=== PATIENT | male | born 1980 | race Caucasian/White ===

== ENCOUNTER 2022-05-29 22:38 | Observation (INO) | payer BC ==
[2022-05-29 23:20] LABS: Basophils % (A) 0 %; Eosinophils # (A) 0.3 k/uL (0-0.7); Eosinophils % (A) 4 %; HCT 46.9 % (39.0-53.0); HGB 16.2 gm/dL (13.0-17.5); Lymphocytes # (A) 2.5 k/uL (1.0-4.8); Lymphocytes % (A) 35 %; MCH 31.6 pg (25.0-35.0); MCHC 34.5 g/dL (31.0-37.0); MCV 91.6 fL (80.0-100.0); Mean Platelet Volume 8.2; Monocytes # (A) 0.5 k/uL (0-1.0); Monocytes % (A) 7 %; Neutrophils # (A) 3.8 k/uL (1.3-7.7); Neutrophils % (A) 53 %; Platelet Count 209 k/uL (150-450); RBC 5.12 m/uL (4.30-5.90); RDW 12.3 % (11.5-15.5); WBC 7.3 k/uL (3.8-10.6)
[2022-05-29 23:31] LABS: Partial Thromboplastin Time 25.7 sec (22.0-30.0); Prothrombin Time 11.3 sec (9.0-12.0)
--- NOTE | 2022-05-29 23:38 | XR ---
EXAMINATION TYPE: XR chest 2V DATE OF EXAM: 05/29/2022 COMPARISON: NONE HISTORY: Chest pain TECHNIQUE: 2 views FINDINGS: Heart and mediastinum are normal. Lungs are clear. Diaphragm is normal. Bony thorax appears normal. IMPRESSION: Normal chest.
[2022-05-29 23:49] LABS: ALT 24 U/L (4-49); AST 30 U/L (17-59); African American GFR (CKD) >90 (>60 ml/min/1.73 sqM); Albumin 5.1 g/dL (3.5-5.0); Alkaline Phosphatase 75 U/L (38-126); Anion Gap 12 mmol/L; Blood Urea Nitrogen 18 mg/dL (9-20); Calcium 9.7 mg/dL (8.4-10.2); Carbon Dioxide 25 mmol/L (22-30); Chloride 100 mmol/L (98-107); Glucose 93 mg/dL (74-99); Non-African American GFR(CKD) >90 (>60 ml/min/1.73 sqM); Potassium 4.2 mmol/L (3.5-5.1); Sodium 137 mmol/L (137-145); Total Bilirubin 0.3 mg/dL (0.2-1.3); Total Protein 7.6 g/dL (6.3-8.2)
[2022-05-30] MEDS ORDERED: NITROGLYCERIN OINT 1 INCH/GM PACKET TOPICAL STA (00:11)
[2022-05-30] MEDS ORDERED: ASPIRIN 81 MG PO STA (00:11)
--- NOTE | 2022-05-30 00:15 | ED ---
Chest Pain HPI - General Chief Complaint: Chest Pain Stated Complaint: Chest Pain Time Seen by Provider: 05/30/22 00:05 Source: patient, RN notes reviewed Mode of arrival: wheelchair Limitations: no limitations - History of Present Illness Initial Comments: This is a pleasant 41-year-old male who presents to the emergency department today complaining of 2 or 3 days of left-sided chest pressure with radiation into the left arm. Patient states this actually occurs at rest. He is denying any other specific symptomology. It is not reproducible. Patient has no history of cardiac disease. Denying any known family history. Patient is a nonsmoker. No previous cardiac testing. Patient states he did have an EKG done at his physician's office several months ago which showed an irregular heartbeat but he never followed up to get tested. No headache, no fever or chills, no changes in vision or hearing, no sore throat or difficulty with speech, no neck pain, no shortness of breath, no abdominal pain, no nausea or vomiting, no changes in urination or bowel movements, no numbness or tingling, no extremity pain, no skin rashes or lesions. Past medical, surgical, social, and family history reviewed. MD Complaint: chest pain - Related Data Allergies Allergy/AdvReac Type Severity Reaction Status Date / Time No Known Allergies Allergy Verified 05/29/22 22:43 Review of Systems ROS Statement: Those systems with pertinent positive or pertinent negative responses have been documented in the HPI. ROS Other: All systems not noted in ROS Statement are negative. EKG Findings - EKG Comments: EKG Findings:: EKG shows sinus rhythm with a rate of 64. Normal axis. No acute ST or T-wave changes. Normal intervals. No comparison study. 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 Vital signs stable, patient afebrile. Limitations: no limitations General appearance: alert, in no apparent distress Head exam: Present: atraumatic, normocephalic, normal inspection Eye exam: Present: normal appearance, PERRL, EOMI. Absent: scleral icterus, conjunctival injection, periorbital swelling ENT exam: Present: normal exam, mucous membranes moist Neck exam: Present: normal inspection, full ROM. Absent: tenderness, meningismus, lymphadenopathy Respiratory exam: Present: normal lung sounds bilaterally. Absent: respiratory distress, wheezes, rales, rhonchi, stridor Cardiovascular Exam: Present: regular rate, normal rhythm, normal heart sounds. Absent: systolic murmur, diastolic murmur, rubs, gallop, clicks GI/Abdominal exam: Present: soft, normal bowel sounds. Absent: distended, tenderness, guarding, rebound, rigid Extremities exam: Present: normal inspection, full ROM, normal capillary refill. Absent: tenderness, pedal edema, joint swelling, calf tenderness Back exam: Present: normal inspection Neurological exam: Present: alert, oriented X3, CN II-XII intact Psychiatric exam: Present: normal affect, normal mood Skin exam: Present: warm, dry, intact, normal color. Absent: rash Course Vital Signs 05/29/22 05/30/22 22:40 00:04 Temperature 98.2 F Pulse Rate 65 58 L Respiratory 20 18 Rate Blood Pressure 130/76 113/76 O2 Sat by Pulse 98 99 Oximetry - Reevaluation(s) Reevaluation #1: 05/30/22 01:02 Medical record is reviewed Symptoms are improved here in the emergency department Patient is informed of results and questions answered Patient in no distress - Consultations Consultation #1: This will be discussed with [facility]. Chest Pain MDM - Differential Diagnosis AMI, ACS - MDM Patient presents with chest pain, not reproducible. Atypical in nature given the negative troponin and EKG. She'll be admitted for observation and chest pain rule out.Patient's chest pain does not appear to be consistent with infectious etiology, pulmonary etiology, or pulmonary embolism. All findings discussed with the patient. All questions answered. Aspirin given. Nitroglycerin paste applied. Supervising physician Dr. Corrigan Disposition Clinical Impression: Atypical chest pain Disposition: ADMITTED IP TO THIS [facility] Condition: Stable Is patient prescribed a controlled substance at d/c from ED?: No Referrals: None,Stated [Primary Care Provider] - 1-2 days Time of Disposition: 00:14 Decision to Admit Reason: Admit from EC Decision Time: 00:15
[2022-05-30] MEDS ORDERED: MORPHINE SULFATE 4 MG/ML SYRINGE IV PRN (01:00)
[2022-05-30] MEDS ORDERED: NALOXONE 0.4 MG/ML 1 ML VIAL IV PRN (01:00)
[2022-05-30] MEDS ORDERED: ONDANSETRON 4 MG/2 ML VIAL IVP PRN (01:00)
[2022-05-30] MEDS ORDERED: ACETAMINOPHEN TAB 325 MG TAB PO PRN (01:00)
[2022-05-30] MEDS ORDERED: SODIUM CHLORIDE 0.9% 1,000 ML IV SCH (05:00)
--- NOTE | 2022-05-30 05:14 | P.HPIM ---
History of Present Illness H&P Date: 05/30/22 Chief Complaint: chest pain 41-year-old male with no significant past medical history Patient comes in with complaint of off and on chest pain for the past 3 days he reports left-sided chest pain that started about couple weeks ago. But has increased in frequency and severity over the past 3 days. He feels episodes of short-lived tightness of the left side of the chest 8 out of 10 in severity not associated with any dizziness lightheadedness nausea vomiting no associated diaphoresis shortness of breath syncope or near-syncope. He reports that he has moved into a new house about a month ago but denies any injuries denies any limitations to activities. Denies any cardiac workup in the past denies any history of blood clots. Denies any recent travel or hospital stay Denies tobacco smoking illicit drugs or alcohol use Open the ED showed chest x-ray with no acute pathology blood work was unremarkable vital signs stable EKG no acute ST changes He denies any cardiac history in the family Review of Systems Pertinent positives as noted in HPI. 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 History of Any Multi-Drug Resistant Organisms: None Reported Past Surgical History: No Surgical Hx Reported Past Psychological History: No Psychological Hx Reported Smoking Status: Never smoker Past Alcohol Use History: None Reported Past Drug Use History: None Reported - Past Family History family Additional Family Medical History / Comment(s): denies coronary artery disease in the family Medications and Allergies Allergies Allergy/AdvReac Type Severity Reaction Status Date / Time No Known Allergies Allergy Verified 05/29/22 22:43 Physical Exam Vitals: Vital Signs Temp Pulse Resp BP Pulse Ox 05/30/22 02:32 98.4 F 81 15 117/66 96 05/30/22 00:04 58 L 18 113/76 99 05/29/22 22:40 98.2 F 65 20 130/76 98 Intake and Output 05/29/22 05/29/22 05/30/22 14:59 22:59 06:59 Other: Weight 88.451 kg Constitutional: No acute distress, conversant, pleasant Eyes: Anicteric sclerae, moist conjunctiva, Pupils equal round reactive to light ENMT: NC/AT Oropharynx clear, no erythema, or exudates Neck: Supple, FROM, no masses, or JVD No carotid bruits No thyromegaly Lungs: Clear to auscultation Clear to percussion Normal respiratory effort, no accessory muscle use Cardiovascular: Heart regular in rate and rhythm, No murmurs, gallops, or rubs No peripheral edema Abdominal: Soft Nontender, no guarding, rebound or rigidity Abdomen moving with respiration Normoactive bowel sounds No hepatomegaly, No splenomegaly No palpable mass No abdominal wall hernia noted Skin: Normal temperature, tone, texture, turgor No induration No subcutaneous nodules No rash, lesions No ulcers Extremities: No digital cyanosis No clubbing Pedal pulses intact and symmetrical Radial pulses intact and symmetrical No calf tenderness Psychiatric: Alert and oriented to person, place and time Appropriate affect fair judgement Neuro Muscles Strength 5/5 in all 4 extremities Sensation to light touch grossly present throughout Cranial nerves II-XII grossly intact No focal sensory deficits Lymphatics: no palpable cervical or supraclavicular , or inguinal lymph nodes Results CBC & Chem 7: 05/29/22 22:44 05/29/22 22:44 Labs: Abnormal Lab Results - Last 24 Hours (Table) 05/29/22 Range/Units 22:44 Albumin 5.1 H (3.5-5.0) g/dL Assessment and Plan Assessment: atypical chest pain rule out ACS EKG no acute changes CXR no acute pathology trops negative X2 residential monitor monitor vital signs ASA, cardiology consult A1c, lipid panel , TSH pain control DVT prophylaxis heparin subcu 3 times a day Full code
[2022-05-30] MEDS: HEPARIN SODIUM,PORCINE/PF 5,000 UNIT/0.5 ML SYRINGE SQ SCH ×3 (07:25→23:02)
--- NOTE | 2022-05-30 10:42 | P.CRDCN ---
History of Present Illness Consult date: 05/30/22 History of present illness: Patient has a known history of PVCs. 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 We have been consulted to see the patient for chest pain. Patient presented to the ER with complaints of intermittent chest pain for the past 3 days that radiated down the left arm. Patient reports associated factors such as increased shortness of breath diaphoresis, dizziness, syncope, edema, nausea, or vomiting. The pain was not relieved or exacerbated by rest or activity. Patient's EKG showed sinus rhythm. His troponins are negative 3. 2-D echocardiogram normal LV function without significant valvular disease Recommended patient undergo stress test Review of Systems REVIEW OF SYSTEMS At the time of my exam: CONSTITUTIONAL: Denies fever or chills. EYES: Negative for vision changes ENT: Negative for hearing loss CARDIOVASCULAR: Complains of chest pain, denies shortness of breath, diaphoresis, orthopnea, PND or palpitations. VASCULAR: Denies edema RESPIRATORY: Denies cough. GASTROINTESTINAL: Denies abdominal pain, diarrhea, constipation, nausea or vomiting. MUSCULOSKELETAL: Denies myalgias. NEUROLOGIC: Denies numbness, tingling, headache or weakness. ENDOCRINE: Denies fatigue, weight change, polydipsia or polyurina. GENITOURINARY: Denies burning, hematuria or urgency with micturation. HEMATOLOGIC: Denies history of anemia or bleeding. DERMATOLOGY: Denies rash or skin sores PSYCH: Negative for depression or hallucinations. Past Medical History Additional Past Medical History / Comment(s): PVCs History of Any Multi-Drug Resistant Organisms: None Reported Past Surgical History: No Surgical Hx Reported Past Psychological History: No Psychological Hx Reported Smoking Status: Never smoker Past Alcohol Use History: None Reported Past Drug Use History: None Reported - Past Family History family Additional Family Medical History / Comment(s): denies coronary artery disease in the family Medications and Allergies Home Medications Medication Instructions Recorded Confirmed Type No Known Home Medications 05/30/22 05/30/22 History Allergies Allergy/AdvReac Type Severity Reaction Status Date / Time No Known Allergies Allergy Verified 05/30/22 07:22 Physical Exam Vitals: Vital Signs Temp Pulse Resp BP Pulse Ox 05/30/22 05:35 61 16 117/71 98 05/30/22 02:32 98.4 F 81 15 117/66 96 05/30/22 00:04 58 L 18 113/76 99 05/29/22 22:40 98.2 F 65 20 130/76 98 Intake and Output 05/29/22 05/30/22 05/30/22 22:59 06:59 14:59 Other: Weight 88.451 kg PHYSICAL EXAMINATION VITAL SIGNS: Reviewed General: The patient is awake and alert, in no distress, and does not appear acutely ill. Skin: Skin is warm and dry and no rashes or lesions are noted. Eye: Pupils are equal, round and reactive to light, extra-ocular movements are intact; there is normal conjunctiva bilaterally. Ears, nose, mouth and throat: There are moist mucous membranes and no oral lesions. Neck: The neck is supple, there is no tenderness or JVD. Cardiovascular: There is irregular regular rate and rhythm. No murmur, rub or gallop is appreciated. Respiratory: Lungs are clear to auscultation, respirations are non-labored, breath sounds are equal. Gastrointestinal: Soft, non-distended, non-tender abdomen without masses or organomegaly noted. There is no rebound or guarding present. Bowel sounds are unremarkable. Back: There is no tenderness to palpation in the midline. There is no obvious deformity. Musculoskeletal: Normal ROM, no tenderness, There is no pedal edema. There is no calf tenderness or swelling. Extremities: Mild bilateral pitting edema Vascular: Femoral pulse is normal. Posterior tibial pulses are normal .Dorsalis pedis is palpable. Neurological: CN II-XII intact. There are no obvious motor or sensory deficits. Speech is normal. Psychiatric: Cooperative, appropriate mood & affect, normal judgment Results 05/29/22 22:44 05/29/22 22:44 Cardiac Enzymes 05/29/22 05/29/22 05/30/22 Range/Units 22:44 22:44 04:20 AST 30 (17-59) U/L Troponin I <0.012 <0.012 (0.000-0.034) ng/mL 05/30/22 Range/Units 07:11 AST (17-59) U/L Troponin I <0.012 (0.000-0.034) ng/mL Coagulation 05/29/22 Range/Units 22:44 PT 11.3 (9.0-12.0) sec APTT 25.7 (22.0-30.0) sec CBC 05/29/22 Range/Units 22:44 WBC 7.3 (3.8-10.6) k/uL RBC 5.12 (4.30-5.90) m/uL Hgb 16.2 (13.0-17.5) gm/dL Hct 46.9 (39.0-53.0) % Plt Count 209 (150-450) k/uL Comprehensive Metabolic Panel 05/29/22 Range/Units 22:44 Sodium 137 (137-145) mmol/L Potassium 4.2 (3.5-5.1) mmol/L Chloride 100 (98-107) mmol/L Carbon Dioxide 25 (22-30) mmol/L BUN 18 (9-20) mg/dL Creatinine 0.91 (0.66-1.25) mg/dL Glucose 93 (74-99) mg/dL Calcium 9.7 (8.4-10.2) mg/dL AST 30 (17-59) U/L ALT 24 (4-49) U/L Alkaline Phosphatase 75 (38-126) U/L Total Protein 7.6 (6.3-8.2) g/dL Albumin 5.1 H (3.5-5.0) g/dL Current Medications Generic Name Dose Route Start Last Admin Trade Name Freq PRN Reason Stop Dose Admin Acetaminophen 650 mg 05/30/22 01:00 Acetaminophen Tab 325 Mg Tab PO Q6HR PRN Mild Pain or Fever > 100.5 Heparin Sodium (Porcine) 5,000 unit 05/30/22 08:00 05/30/22 07:25 Heparin Sodium,Porcine/Pf 5,000 Unit/0.5 Ml Syringe SQ 5,000 unit Q8HR WAYNE Administration Sodium Chloride 1,000 mls @ 75 mls/hr 05/30/22 05:00 Saline 0.9% IV .[id number] WAYNE Morphine Sulfate 4 mg 05/30/22 01:00 Morphine Sulfate 4 Mg/Ml Syringe IV Q4HR PRN Severe Pain Naloxone HCl 0.2 mg 05/30/22 01:00 Naloxone 0.4 Mg/Ml 1 Ml Vial IV Q2M PRN Opioid Reversal Ondansetron HCl 4 mg 05/30/22 01:00 05/30/22 07:25 Ondansetron 4 Mg/2 Ml Vial IVP 4 mg Q8HR PRN Administration Nausea And Vomiting Intake and Output 05/29/22 05/30/22 05/30/22 22:59 06:59 14:59 Other: Weight 88.451 kg 05/29/22 22:44 05/29/22 22:44 Assessment and Plan Assessment: Chest pain Plan: Obtain a 2-D echocardiogram and reviewed Stress echo tomorrow morning nothing by mouth at midnight Continue telemetry monitoring Further recommendations based on clinical course The above impression and plan of care have been discussed and directed by the signing physician. Sandra Snell, nurse practitioner, acting as scribe for signing physician.
[2022-05-30 10:54] LABS: Chol/HDL Ratio 2.65 Ratio; LDL Cholesterol,Calculated 106.3 mg/dL (0.0-131.0); VLDL Calculation 13.84 mg/dL (5.00-40.00)
--- NOTE | 2022-05-30 11:13 | CA ---
Transthoracic Echo Report Name: Ion Christensen Age: 41 Gender: M : 1980 Exam Date: 05/30/2022 08:32 Exam Location: [place] Echo Ht (in): 71 Wt (lb): 195 Ordering Physician: Sandra Snell Attending/Referring Phys: Safety Deposit Supervisor Corrina Murphy RDCS Procedure CPT: Indications: CP Cardiac Hx: Technical Quality: Contrast 1: Total Dose (mL): Contrast 2: Total Dose (mL): MEASUREMENTS (Male / Female) Normal Values 2D ECHO LV Diastolic Diameter PLAX 4.9 cm 4.2 - 5.9 / 3.9 - 5.3 cm LV Systolic Diameter PLAX 3.3 cm IVS Diastolic Thickness 1.2 cm 0.6 - 1.0 / 0.6 - 0.9 cm LVPW Diastolic Thickness 1.1 cm 0.6 - 1.0 / 0.6 - 0.9 cm LV Relative Wall Thickness 0.5 RV Internal Dim ED PLAX 3.1 cm LA Systolic Diameter LX 3.2 cm 3.0 - 4.0 / 2.7 - 3.8 cm LA Volume 59.5 cm??? 18 - 58 / 22 - 52 cm??? M-MODE Aortic Root Diameter MM 3.6 cm MV E Point Septal Separation 0.4 cm AV Cusp Separation MM 2.5 cm DOPPLER AV Peak Velocity 137.9 cm/s AV Peak Gradient 7.6 mmHg MV Area PHT 1.6 cm??? Mitral E Point Velocity 73.4 cm/s Mitral A Point Velocity 38.4 cm/s Mitral E to A Ratio 1.9 MV Deceleration Time 466.6 ms MV E' Velocity 13.8 cm/s Mitral E to MV E' Ratio 5.3 TR Peak Velocity 219.1 cm/s TR Peak Gradient 19.2 mmHg Right Ventricular Systolic Press 23.4 mmHg FINDINGS Left Ventricle Left ventricular ejection fraction is estimated at 60-65 %. Left ventricular cavity size normal. Borderline left ventricular hypertrophy. Right Ventricle Normal right ventricular size and function. Right ventricular systolic pressure within normal limits. Right Atrium Normal right atrial size. Left Atrium Mildly increased left atrial volume. No evidence for an atrial septal defect. Mitral Valve Structurally normal mitral valve. No mitral stenosis, regurgitation or prolapse. Aortic Valve Trileaflet aortic valve. No aortic valve stenosis or regurgitation. Tricuspid Valve Trace to mild tricuspid regurgitation. Pulmonic Valve Trace pulmonic regurgitation. Pericardium Normal pericardium. No pericardial effusion. Aorta Normal size aortic root and proximal ascending aorta. CONCLUSIONS Normal LV systolic function Previewed by: Dr. Conner Cuellar MD (Electronically Signed) Final Date: 30 May 2022 11:12
[2022-05-30] MEDS ORDERED: KETOROLAC 15 MG/ML 1 ML VIAL IVP STA (11:39)
--- NOTE | 2022-05-30 13:39 | P.PN ---
Progress Note - Text Progress Note Date: 05/30/22 Patient was seen and examined. No acute events overnight. Patient continues to report a pressure-like left-sided chest. He reports a headache since starting nitro patch. General: [non toxic], [no distress], [appears at stated age] Derm: [warm], [dry] Head: [atraumatic], [normocephalic], [symmetric] Eyes: [EOMI], [no lid lag], [anicteric sclera] Mouth: [no lip lesion], [mucus membranes moist] Cardiovascular: [S1S2 reg], [no murmur] Lungs: [CTA bilateral], [no rhonchi, no rales] , [no accessory muscle use] Ext: [no gross muscle atrophy], [no edema], [no contractures] Neuro: [no focal neuro deficits] Psych: [Alert], [oriented], [appropriate affect] #Chest pain #Headache Echocardiogram shows EF of 60-65% with no regional wall motion abnormalities. Cardiology consulted - plans for dobutamine stress test tomorrow. Headache likely related to nitro patch. Discontinue. Toradol as needed. Heparin for DVT prophylaxis. Patient would like to be FULL CODE. Anticipate DC home tomorrow.
[2022-05-31] MEDS ORDERED: DOBUTamine DRIP for NUC MED 500 MG in DEXTROSE/WATER 1 250ML.BAG IV PRN (07:00)
[2022-05-31 08:09] VITALS: BP 125/66; PULSE 67; RESP 18; TEMP 97.9
--- NOTE | 2022-05-31 10:46 | CA ---
Stress Echo Report Ion Christensen Age: 41 Gender: M : 1980 Exam Date: 05/31/2022 10:01 Exam Location: [place] Stress Ht (in): 71 Wt (lb): 195 Ordering Physician: Sandra Snell Referring Physician: ROSALVA, Tool Design Drafter: Ana Tavarez RDCS Technologist Procedure CPT: Indication: Chest Pain ICD-9 Codes: Rhythm: Patient History: Cardiac Medications: Medications in past 24 hours: Contrast: Stress Results Protocol: Volodymyr Total dose(mL): Exercise Duration (min:sec): 11:[address] Depression (mm): Angina Score: Jensen Score: METS: 12.1 Resting HR: 60 Resting BP: 117 / 81 Peak HR: 173 Peak BP: 183 / 75 Max Predicted HR: 179 97 % Max Predicted HR Target HR: 152 Double Product: [id number] Stress Summary: BP Response: Reason for Termination: Reached target heart rate or work-load Cardiac Symptoms: ECG Analysis Resting ECG: Normal sinus rhythm normal axis normal intervals Stress ECG: Negative stress test by EKG criteria Arrhythmia: Echo Analysis Resting Echo: Normal left ventricular size wall motion systolic function Peak Echo Analysis: Normal hyperdynamic response of all segments of myocardium MEASUREMENTS (Male/Female) Normal Values CONCLUSIONS Excellent exercise tolerance Negative stress test by EKG criteria Negative stress echo Dr. Conner Cuellar MD (Electronically Signed) Final Date: 31 May 2022 10:45
--- NOTE | 2022-05-31 11:04 | P.DS ---
Providers Date of admission: 05/30/22 01:06 Expected date of discharge: 05/31/22 Attending physician: Alberta Clay MD Consults: 05/30/22 04:57 Consult Physician Routine Consulting Provider: Kalen Cano Consult Reason/Comments: chest pain Do you want consulting provider notified?: Yes, Notify in am Primary care physician: Stated None Hospital Course: 41-year-old male with no significant past medical history Patient comes in with complaint of off and on chest pain for the past 3 days he reports left-sided chest pain that started about couple weeks ago. But has increased in frequency and severity over the past 3 days. He feels episodes of short-lived tightness of the left side of the chest 8 out of 10 in severity not associated with any dizziness lightheadedness nausea vomiting no associated diaphoresis shortness of breath syncope or near-syncope. He reports that he has moved into a new house about a month ago but denies any injuries denies any limitations to activities. Denies any cardiac workup in the past denies any history of blood clots. Denies any recent travel or hospital stay. Denies tobacco smoking illicit drugs or alcohol use. Chest x-ray with no acute pathology blood work was unremarkable vital signs stable EKG no acute ST changes. He denies any cardiac history in the family. Troponins were trended and ACS was ruled out. Echocardiogram showed EF of 60- 65% with no regional wall motion abnormalities. Cardiology was consulted and recommended a dobutamine stress test. Stress test was negative. Patient was cleared for discharge. General: [non toxic], [no distress], [appears at stated age] Derm: [warm], [dry] Head: [atraumatic], [normocephalic], [symmetric] Eyes: [EOMI], [no lid lag], [anicteric sclera] Mouth: [no lip lesion], [mucus membranes moist] Cardiovascular: [S1S2 reg], [no murmur] Lungs: [CTA bilateral], [no rhonchi, no rales] , [no accessory muscle use] Ext: [no gross muscle atrophy], [no edema], [no contractures] Neuro: [no focal neuro deficits] Psych: [Alert], [oriented], [appropriate affect] Discharge Diagnosis: #Chest pain #Headache Pertinent Studies: Echocardiogram Stress Echo Patient Condition at Discharge: Stable Plan - Discharge Summary Discharge Rx Participant: No New Discharge Prescriptions: No Action No Known Home Medications Discharge Medication List No Known Home Medications 05/30/22 [History] Follow up Appointment(s)/Referral(s): None,Stated [Primary Care Provider] - 1-2 days
[2022-05-31] MEDS: HEPARIN SODIUM,PORCINE/PF 5,000 UNIT/0.5 ML SYRINGE SQ SCH (11:30)
--- NOTE | 2022-05-31 21:29 | PN ---
PROGRESS NOTE SUBJECTIVE: Mr. Christensen is a 41-year-old gentleman, who was admitted to hospital with chest pain and ruled out for myocardial infarction. This morning, he is pain-free and stable and is to undergo a stress test. OBJECTIVE: GENERAL: Comfortable at rest. VITAL SIGNS: Stable. NECK: There is jugular venous distention. CHEST: Reveals good air entry bilaterally. HEART: Reveals first and second heart sounds. No gallop. No murmur. ABDOMEN: Soft and nontender. EXTREMITIES: Did not reveal any edema. Peripheral pulses are felt. ASSESSMENT AND PLAN: Atypical chest pain. Myocardial infarction is ruled out. The patient underwent a stress echo, wherein he exercised for 11 minutes on Volodymyr protocol without chest pain, ischemic EKG changes, or exercise-induced wall motion abnormalities. An echocardiogram showed normal left ventricular systolic function without significant valvular heart disease. Aortic root measures within normal limits. Coronary artery disease ruled out. No further cardiac workup at this time. Arrange followup with primary care physician. MMARYAL / JOELN: [id number] /
== END 2022-05-31 12:30 | disposition home or self-care (01) ==
LOC: EC 22:38 → 6NMEDSUR 05-30 01:06
PROVIDERS: ADMIT Internal Medicine; ATTEND Internal Medicine
DX: R07.89 Other chest pain (principal); I49.3 Ventricular premature depolarization; I07.1 Rheumatic tricuspid insufficiency; I37.1 Nonrheumatic pulmonary valve insufficiency; Z29.9 Encounter for prophylactic measures, unspecified
CPT/HCPCS: 96372 ×2; 96374; 96375; 99285; 36415; 93005; 93306; 93351; 80061; 80053; 83735; 84484 ×2; 85025; 85610; 85730; 83036; 71046; G0378 ×2; J1250; J2405; J1885; J1644